=== PATIENT | female | born 1950 | race American Indian/Alaskan Native ===

== ENCOUNTER 2017-03-17 08:34 | Outpatient (CLI) | payer BC ==
--- NOTE | 2017-03-17 13:45 | Mammography Report ---
BILATERAL DIGITAL SCREENING MAMMOGRAM with CAD: 03/17/17 08:34:00 CLINICAL: Routine screening. COMPARISON:03/07/16 and 02/15/15 FINDINGS: The breasts are heterogeneously dense, which may obscure small masses. Left asymmetries with architectural distortion requires additional imaging.No suspicious calcifications. The right breast is negative. IMPRESSION: Left asymmetries with architectural distortion requiring further workup. BI-RADS CATEGORY: 0 -- Additional Imaging Evaluation Required RECOMMENDATION: Recall for left mediolateral , spot magnification CC and MLO views and ultrasound if needed. ACR BI-RADS MAMMOGRAPHIC CODES: 0 = Needs additional imaging evaluation; 1 = Negative; 2 = Benign; 3 = Probably benign; 4 = Suspicious; 5 = Malignant; 6 = Known biopsy-proven malignancy COMMENT: 1. Dense breast tissue, i.e., adenosis, fibrocystic changes, etc., may obscure an underlying neoplasm. 2. Approximately 10% of cancers are not detected with mammography. 3. A negative mammography report should not delay biopsy if a clinically suspicious mass is present. COMMENT: Patient follow-up letters are generated via our [employer] application.
== END 2017-03-17 08:35 | disposition home or self-care (01) ==
LOC: SPVWC 08:34
PROVIDERS: ATTEND Internal Medicine
DX: Z12.31 Encounter for screening mammogram for malignant neoplasm of breast (principal)
CPT/HCPCS: 77067; G0202

== ENCOUNTER 2017-04-09 14:06 | Outpatient (CLI) | payer BC ==
--- NOTE | 2017-04-09 14:53 | Mammography Report ---
Left mammogram: Spot CC and lateral compression images of the left breast are performed for asymmetry as described on recent screening examination in February. The additional compression images are compared to her prior study in 2016. There no interval changes identified. Impression: Stable findings. Recommendation: Annual mammogram followup. BI-RADS CATEGORY: 1 = Negative ACR BI-RADS MAMMOGRAPHIC CODES: 0 = Needs additional imaging evaluation; 1 = Negative; 2 = Benign; 3 = Probably benign; 4 = Suspicious; 5 = Malignant; 6 = Known biopsy-proven malignancy COMMENT: 1. Dense breast tissue, i.e., adenosis, fibrocystic changes, etc., may obscure an underlying neoplasm. 2. Approximately 10% of cancers are not detected with mammography. 3. A negative mammography report should not delay biopsy if a clinically suspicious mass is present.
== END 2017-04-09 14:07 | disposition home or self-care (01) ==
LOC: SPVWC 14:06
PROVIDERS: ATTEND Internal Medicine
DX: R92.8 Other abnormal and inconclusive findings on diagnostic imaging of breast (principal)
CPT/HCPCS: G0206-LT

== ENCOUNTER 2018-04-12 14:09 | Outpatient (CLI) | payer BC ==
--- NOTE | 2018-04-13 15:10 | Mammography Report ---
BILATERAL DIGITAL SCREENING MAMMOGRAM with CAD: 04/12/18 14:09:00 CLINICAL: Routine screening. COMPARISON:03/17/17 FINDINGS: The breasts are heterogeneously dense, which may obscure small masses.The fibroglandular pattern is stable. No mass, architectural distortion or suspicious calcifications. IMPRESSION: No mammographic evidence of malignancy. BI-RADS CATEGORY: 1 - - Negative RECOMMENDATION: Routine mammographic screening in one year. COMMENT: Patient follow-up letters are generated by our [employer] application.
== END 2018-04-12 14:10 | disposition home or self-care (01) ==
LOC: SPVWC 14:09
PROVIDERS: ATTEND Internal Medicine
DX: Z12.31 Encounter for screening mammogram for malignant neoplasm of breast (principal); M19.90 Unspecified osteoarthritis, unspecified site; Z90.710 Acquired absence of both cervix and uterus
CPT/HCPCS: 77067

== ENCOUNTER 2018-05-09 03:50 | Emergency (ER) | payer MEDICARE ==
[2018-05-09 05:25] VITALS: BP 137/83
[2018-05-09] MEDS ORDERED: NACL 0.9% 1000 ML 1,000 ML IV ONE (05:25)
[2018-05-09 08:53] LABS: Bilirubin,Urine NEG (Negative); Blood,Urine SM (Negative); Color,Urine Yellow (Yellow); Hyaline Casts,Urine 1 /LPF; Mucus,Urine FEW /HPF; Protein,Urine <15 mg/dL mg/dL (Negative); Urobilinogen,Urine < 2.0 mg/dL (<2.0)
[2018-05-09] MEDS ORDERED: NORCO 7.5/325 PO ONE (09:58)
[2018-05-09] MEDS ORDERED: ZOFRAN ODT PO ONE (09:58)
--- NOTE | 2018-05-09 10:01 | Emergency Department Report ---
ED Abdominal Pain HPI - General Chief Complaint: Abdominal Pain Stated Complaint: ABDOMINAL PAIN Time Seen by Provider: 05/09/18 09:53 Source: patient Mode of arrival: Ambulatory Limitations: No Limitations - History of Present Illness Initial Comments: Patient is a 67-year-old Female who states that approximately 8 hours ago she had an acute onset of left lower quadrant pain that awoke her from her sleep. Patient states this was associated with some nausea and vomiting as well. Patient denies any fevers chills diarrhea headache chest pain cough, congestion. Patient has never had a history of pain to this magnitude. Patient states that the pain is between a 4 and a 6 out of 10. She says it does wax and wane. - Related Data Previous Rx's Medication Instructions Recorded Last Taken Type Methocarbamol [Robaxin] 750 mg PO BID #14 tab 09/20/13 Unknown Rx traMADol [Ultram] 50 mg PO Q6HR PRN #20 tablet 09/20/13 Unknown Rx HYDROcodone/APAP 5-325 [[place] 1 each PO Q6HR PRN #15 tablet 05/09/18 Unknown Rx 5/325] Nitrofurantoin Monohyd/M-Cryst 100 mg PO BID #14 capsule 05/09/18 Unknown Rx [Macrobid 100 mg Capsule] Ondansetron [Zofran Odt] 4 mg PO Q8HR PRN #10 tab.rapdis 05/09/18 Unknown Rx Tamsulosin HCl [Flomax] 0.4 mg PO QHS #7 cap.er.24h 05/09/18 Unknown Rx Allergies Allergy/AdvReac Type Severity Reaction Status Date / Time Sulfa (Sulfonamide Allergy Unknown Verified 05/09/18 05:17 Antibiotics) ED Review of Systems ROS: Stated complaint: ABDOMINAL PAIN Other details as noted in HPI Comment: All other systems reviewed and negative ED Past Medical Hx - Past Medical History Previous Medical History?: Yes Hx Hypertension: Yes Hx GERD: Yes Hx Arthritis: Yes - Social History Smoking Status: Never Smoker - Medications Home Medications: Home Medications Medication Instructions Recorded Confirmed Last Taken Type Methocarbamol [Robaxin] 750 mg PO BID #14 tab 09/20/13 Unknown Rx traMADol [Ultram] 50 mg PO Q6HR PRN #20 tablet 09/20/13 Unknown Rx HYDROcodone/APAP 5-325 [[place] 1 each PO Q6HR PRN #15 tablet 05/09/18 Unknown Rx 5/325] Nitrofurantoin Monohyd/M-Cryst 100 mg PO BID #14 capsule 05/09/18 Unknown Rx [Macrobid 100 mg Capsule] Ondansetron [Zofran Odt] 4 mg PO Q8HR PRN #10 tab.rapdis 05/09/18 Unknown Rx Tamsulosin HCl [Flomax] 0.4 mg PO QHS #7 cap.er.24h 05/09/18 Unknown Rx ED Physical Exam - General Limitations: No Limitations General appearance: alert, in no apparent distress - Head Head exam: Present: atraumatic, normocephalic - Eye Eye exam: Present: normal appearance - ENT ENT exam: Present: mucous membranes moist - Neck Neck exam: Present: normal inspection - Respiratory Respiratory exam: Present: normal lung sounds bilaterally. Absent: respiratory distress, wheezes, rales, rhonchi - Cardiovascular Cardiovascular Exam: Present: regular rate, normal rhythm. Absent: systolic murmur, diastolic murmur, rubs, gallop - GI/Abdominal GI/Abdominal exam: Present: soft, normal bowel sounds. Absent: distended, tenderness, guarding, rebound - Extremities Exam Extremities exam: Present: normal inspection - Back Exam Back exam: Present: normal inspection - Neurological Exam Neurological exam: Present: alert, oriented X3 - Psychiatric Psychiatric exam: Present: normal affect, normal mood - Skin Skin exam: Present: warm, dry, intact, normal color. Absent: rash ED Course Vital Signs 05/09/18 05:19 Temperature 97.8 F Pulse Rate 66 Respiratory 20 Rate Blood Pressure 137/83 O2 Sat by Pulse 98 Oximetry - Reevaluation(s) Reevaluation #1: 05/09/18 10:00 Patient hasa small amount of hematuria. Patient's physical exam pain is not palpable she states it's a deeper pain. I do suspect kidney stones CT abdomen and pelvis without contrast has been ordered. ED Medical Decision Making - Lab Data Lab Results 05/09/18 Range/Units 08:34 Urine Color Yellow (Yellow) Urine Turbidity Clear (Clear) Urine pH 5.0 (5.0-7.0) Ur Specific [place] 1.018 (1.003-1.030) Urine Protein <15 mg/dl (Negative) mg/dL Urine Glucose (UA) Neg (Negative) mg/dL Urine Ketones Neg (Negative) mg/dL Urine Blood Sm (Negative) Urine Nitrite Neg (Negative) Urine Bilirubin Neg (Negative) Urine Urobilinogen < 2.0 (<2.0) mg/dL Ur Leukocyte Esterase Neg (Negative) Urine WBC (Auto) 1.0 (0.0-6.0) /HPF Urine RBC (Auto) 13.0 (0.0-6.0) /HPF U Epithel Cells (Auto) 1.0 (0-13.0) /HPF Hyaline Casts 1 /LPF Urine Mucus Few /HPF - Radiology Data ordering Physician: JULIANA JIMENEZ MD Date of Service: 05/09/18 Procedure(s): CT abdomen pelvis wo con Accession Number(s): [id number] cc: JULIANA JIMENEZ MD FINAL REPORT EXAM: CT ABDOMEN PELVIS WO CON HISTORY: LLQ pain with hematuria COMPARISON: None. TECHNIQUE: Multiple contiguous axial images were obtained from the lung bases to the pubic symphysis without administration of IV contrast. Reformatted sagittal and coronal images were available for review. FINDINGS: Lung bases: Normal. Visualized heart and mediastinum: Normal noncontrast appearance. Liver: Normal noncontrast appearance. Spleen: Normal noncontrast appearance. Pancreas: Normal noncontrast appearance. Gallbladder and Biliary Tree: No calcified gallstones. No biliary ductal dilatation. Adrenal glands: Normal. Kidneys: There is mild left hydronephrosis and hydroureter. There is a 4 millimeter calcification at the left ureterovesicular junction. The right kidney demonstrates normal noncontrast appearance. Bladder: Normal. Pelvic organs: The uterus has been surgically removed. Bowel: No focal wall thickening. No evidence of obstruction. The appendix is normal in caliber without surrounding inflammatory change. Scattered diverticula of the sigmoid colon without evidence of diverticulitis. Peritoneum: No significant mesenteric adenopathy. No free air or free fluid. Vasculature: Abdominal aorta is normal in caliber without evidence of aneurysm. Scattered atherosclerotic changes the abdominal aorta. Bones and soft tissues: No suspicious osseous lesions. No acute fracture or dislocation. Soft tissues are normal. IMPRESSION: 4 millimeter calcification at the left ureterovesicular junction with associated mild left hydronephrosis and hydroureter. Transcribed By: JERRY Dictated By: YI CLAY MD Electronically Authenticated By: YI CLAY MD Signed Date/Time: 05/09/18 1045 - Medical Decision Making Patient will be DC'd home with pain meds. Patient's obstructive uropathy is small that that she should be able to pass it on her own. Patient was also given urology for follow-up as well. Critical care attestation.: If time is entered above; I have spent that time in minutes in the direct care of this critically ill patient, excluding procedure time. ED Disposition Clinical Impression: Hydronephrosis Qualifiers: Hydronephrosis type: with ureteral calculous obstruction Qualified Code(s): N13.2 - Hydronephrosis with renal and ureteral calculous obstruction Disposition: DC-01 TO HOME OR SELFCARE Is pt being admited?: No Does the pt Need Aspirin: No Condition: Stable Instructions: Kidney Stones (ED) Referrals: MARQUISE MCKEON MD [Staff Physician] - 3-5 Days Time of Disposition: 11:13
--- NOTE | 2018-05-09 10:46 | Cat Scan Report ---
FINAL REPORT EXAM: CT ABDOMEN PELVIS WO CON HISTORY: LLQ pain with hematuria COMPARISON: None. TECHNIQUE: Multiple contiguous axial images were obtained from the lung bases to the pubic symphysis without administration of IV contrast. Reformatted sagittal and coronal images were available for review. FINDINGS: Lung bases: Normal. Visualized heart and mediastinum: Normal noncontrast appearance. Liver: Normal noncontrast appearance. Spleen: Normal noncontrast appearance. Pancreas: Normal noncontrast appearance. Gallbladder and Biliary Tree: No calcified gallstones. No biliary ductal dilatation. Adrenal glands: Normal. Kidneys: There is mild left hydronephrosis and hydroureter. There is a 4 millimeter calcification at the left ureterovesicular junction. The right kidney demonstrates normal noncontrast appearance. Bladder: Normal. Pelvic organs: The uterus has been surgically removed. Bowel: No focal wall thickening. No evidence of obstruction. The appendix is normal in caliber without surrounding inflammatory change. Scattered diverticula of the sigmoid colon without evidence of diverticulitis. Peritoneum: No significant mesenteric adenopathy. No free air or free fluid. Vasculature: Abdominal aorta is normal in caliber without evidence of aneurysm. Scattered atherosclerotic changes the abdominal aorta. Bones and soft tissues: No suspicious osseous lesions. No acute fracture or dislocation. Soft tissues are normal. IMPRESSION: 4 millimeter calcification at the left ureterovesicular junction with associated mild left hydronephrosis and hydroureter.
== END 2018-05-09 11:23 | disposition home or self-care (01) ==
LOC: ED 03:50
DX: N13.2 Hydronephrosis with renal and ureteral calculous obstruction (principal); I10 Essential (primary) hypertension; K21.9 Gastro-esophageal reflux disease without esophagitis; M19.90 Unspecified osteoarthritis, unspecified site; Z88.2 Allergy status to sulfonamides
CPT/HCPCS: 74176; 81001; Q0162

== ENCOUNTER 2019-04-13 14:40 | Outpatient (CLI) | payer BC ==
--- NOTE | 2019-04-14 08:36 | Mammography Report ---
BILATERAL DIGITAL SCREENING MAMMOGRAM WITH CAD INDICATION: Screening. COMPARISONS: 04/12/2018 FINDINGS: Craniocaudal and mediolateral oblique views of both breasts were obtained using 2-D digital acquisition. In addition to standard review, the examination was analyzed for possible abnormalities using a computer-assisted detection device (iCAD). The breast tissue is heterogeneously dense, which may obscure small masses. A left asymmetry on the CC view requires additional imaging. No architectural distortion or suspiciou s calcifications. The right breast is negative. IMPRESSION: Left asymmetry requiring additional workup. Recommend recall for left ML, rolled CC and spot magnific ation CC views and left breast ultrasound if needed. BI-RADS CATEGORY 0: INCOMPLETE - NEED ADDITIONAL IMAGING EVALUATION AND/OR PRIOR MAMMOGRAMS FOR COMP ARISON Information is entered into a reminder system for a target due date for the next mammogram. The resul ts and recommendations were sent to the patient by mail. Signer Name: Domenic Malhotra MD Signed: 04/14/2019 8:32 AM Workstation Name: [id number]
== END 2019-04-13 14:41 | disposition home or self-care (01) ==
LOC: SPVWC 14:40
PROVIDERS: ATTEND Internal Medicine
DX: Z12.31 Encounter for screening mammogram for malignant neoplasm of breast (principal)
CPT/HCPCS: 77067

== ENCOUNTER 2020-04-17 15:04 | Outpatient (CLI) | payer BC ==
--- NOTE | 2020-04-18 09:13 | Mammography Report ---
DIGITAL SCREENING MAMMOGRAM WITH CAD, 04/17/2020 INDICATION: Routine screening mammography. SCREENING TECHNIQUE: Digital bilateral 2D mammography was obtained in the craniocaudal and mediolateral obliq ue projections. This examination was interpreted with the benefit of Computer-Aided Detection analysi s. COMPARISON: 04/13/2019 FINDINGS: Breast Density: There are scattered areas of fibroglandular density. There is no evidence of dominant mass, suspicious calcifications or architectural distortion in eithe r breast. A few scattered nodular densities are again seen in both breasts, largely unchanged. IMPRESSION: Follow up recommendation: Routine yearly BI-RADS Category 2: Benign. A "normal" or negative report should not discourage follow up or biopsy of a clinically significant f inding. A written summary of these findings will be mailed to the patient. The patient will be entered into a mammography reporting system which will generate a reminder letter for the patient's next appointmen t at the appropriate interval. The [employer] recommends yearly mammograms starting at age 40 and continuing as l kelsey as a woman is in good health. Breast MRI is recommended for women with an approximate 20-25% or greater lifetime risk of breast cancer, including women with a strong family history of breast or ova love cancer or who have been treated for Hodgkin's disease. Signer Name: Cristhian Booth MD Signed: 04/18/2020 9:09 AM Workstation Name: [id number]
== END 2020-04-17 15:05 | disposition home or self-care (01) ==
LOC: SPVWC 15:04
PROVIDERS: ATTEND Internal Medicine
DX: Z12.31 Encounter for screening mammogram for malignant neoplasm of breast (principal)
CPT/HCPCS: 77067